=== PATIENT | female | born 1940 | race Caucasian/White ===

== ENCOUNTER 2021-11-06 17:25 | Emergency (ER) | payer BC, MEDICARE ==
[~2021-11-06] VITALS: Ht 162.6 cm; Wt 46.7 kg
--- NOTE | 2021-11-06 17:38 | NUR ---
DR ANSARI AT THE BEDSIDE
--- NOTE | 2021-11-06 17:49 | NUR ---
PT IS WHEELED TO CT SCAN VIA [facility].
--- NOTE | 2021-11-06 19:08 | NUR ---
CALLED [facility] FOR TRANSPORT ETA 60 MINS PER JOSEFA
[2021-11-06 19:40] VITALS: BP 146/100
--- NOTE | 2021-11-06 19:40 | NUR ---
Patient discharged to home in stable condition via arranged ambulance. Written and verbal after care instructions given. Patient verbalizes understanding of instruction.
== END 2021-11-06 19:40 | disposition home or self-care (01) ==
LOC: ER 17:29
DX: S30.0XXA Contusion of lower back and pelvis, initial encounter (principal); I10 Essential (primary) hypertension; Z86.73 Personal history of transient ischemic attack (TIA), and cerebral infarction without residual deficits; W01.0XXA Fall on same level from slipping, tripping and stumbling without subsequent striking against object, initial encounter; Y93.01 Activity, walking, marching and hiking; Y92.480 Sidewalk as the place of occurrence of the external cause; Y99.8 Other external cause status
CPT/HCPCS: 72131-TC